=== PATIENT | female | born 1985 | race Caucasian/White ===

== ENCOUNTER 2016-07-16 09:55 | Emergency (ER) | payer BC ==
[2016-07-16 10:12] VITALS: TEMP 98
[2016-07-16] MEDS ORDERED: KETOROLAC TROMETHAMINE INJ 30 MG/ML VIAL IM ONE (10:18)
[2016-07-16] MEDS ORDERED: METOCLOPRAMIDE HCL INJ 10 MG/2 ML VIAL IM ONE (10:18)
[2016-07-16] MEDS ORDERED: LEVOTHYROXINE SODIUM 0.1 MG TAB ONE (11:25)
[2016-07-16] MEDS ORDERED: LEVOTHYROXINE SODIUM 0.075 MG TAB ONE (11:25)
[2016-07-16] MEDS ORDERED: LEVOTHYROXINE SODIUM 0.1 MG, LEVOTHYROXINE SODIUM 0.075 MG PO SCH ×2 (11:33)
--- NOTE | 2016-07-16 11:35 | ED.PDOC ---
History of Present Illness - General Chief Complaint: Headache Stated Complaint: headache and neck pain x 1 day Time Seen by Provider: 07/16/16 10:08 Source: patient Exam Limitations: no limitations - History of Present Illness Initial Comments: the patient is a 30-year-old female presenting to the emergency room secondary to a severe headache that is its worst around the junction of her occiput and paracervical spinal muscles. It has been present since early this morning. No fevers. The headache started first and she started throwing up. She does have a history of some nausea and vomiting in the past. The patient has a history of thyroid cancer and had a total thyroidectomy that was followed by radiation ablation for any remainder. The patient has been dependent on Synthroid daily but ran out approximately 1 week ago. the patient was feeling tired yesterday but no headache was present. There is obviously palpable muscle spasm posteriorly. No focal neurological changes. No blood or bile in the vomitus. No altered mental status. No fever. No overt evidence of increased intracranial pressure. Timing/Duration: 4-6 hours Severity: severe Improving Factors: nothing Worsening Factors: nothing Associated Symptoms: headaches, malaise Allergies/Adverse Reactions: Allergies NO KNOWN ALLERGY Allergy (Verified 11/03/15 22:30) Home Medications: Ambulatory Orders ALPRAZolam [Xanax] 0.25 mg PO DAILY 09/23/15 Citalopram Hydrobromide [CeleXA] 20 mg PO DAILY 09/23/15 Cyanocobalamin [B-12] 1,000 mcg PO DAILY 09/23/15 HYDROcodone 5MG/APAP 325MG [[place] 5/325] 1 - 2 ea PO Q4H PRN 09/23/15 Levothyroxine Sodium [Synthroid] 175 mcg PO MOTUWETH@0700 09/23/15 Levothyroxine Sodium [Synthroid] 350 mcg PO SUFRSA@0700 09/23/15 Pregabalin [Lyrica] 50 mg PO DAILY 09/23/15 Levothyroxine Sodium [Synthroid] 175 mcg PO DAILY #30 tab 07/16/16 Review of Systems - Review of Systems Constitutional: States: malaise EENTM: States: no symptoms reported Respiratory: States: no symptoms reported Cardiology: States: no symptoms reported Gastrointestinal/Abdominal: States: nausea, vomiting Genitourinary: States: no symptoms reported Musculoskeletal: States: neck pain Skin: States: no symptoms reported Neurological: States: headache Endocrine: States: excessive sweating - while vomiting All other Systems: No Change from Baseline Past Medical History (General) - Patient Medical History Hx Seizures: No Hx Stroke: No Hx Dementia: No Hx Asthma: No Hx of COPD: No Hx Cardiac Disorders: No Hx Congestive Heart Failure: No Hx Pacemaker: No Hx Hypertension: No Hx Thyroid Disease: Yes Hx Diabetes: No Hx Gastroesophageal Reflux: No Hx Renal Disease: No Hx Cancer: Yes Hx of HIV: No Hx Hepatitis C: No Hx MRSA: No MRSA Source:: Wound - Vaccination History Hx Tetanus, Diphtheria Vaccination: Yes Hx Influenza Vaccination: Yes Hx Pneumococcal Vaccination: Yes Immunizations Up to Date: Yes - Social History Hx Tobacco Use: No Hx Chewing Tobacco Use: No Hx Alcohol Use: No Hx Substance Use: No Hx Substance Use Treatment: No Hx Depression: No Feels Threatened In Home Enviroment: No Feels Threatened In a Relationship: No Hx Physical Abuse: No Hx Emotional Abuse: No Hx Suspected Abuse: No - Female History Patient is a Female of Child Bearing Age (10 -59 yrs old): Yes Hx Last Menstrual Period: 11/05/12 Patient : No Expected Date of Delivery:: 08/20/13 Family Medical History - Family History Mother Family History: Unknown Living Status: Still Living Physical Exam - Physical Exam General Appearance: Alert, Anxious Eye Exam: bilateral normal Ears, Nose, Throat: hearing grossly normal, normal ENT inspection, normal pharynx Neck: other - the patient is obviously having muscle spasm of the paracervical spinal muscles. This is giving her a severe tension headache. No obvious trauma is present. Respiratory: chest non-tender, lungs clear, normal breath sounds, no respiratory distress, no accessory muscle use Cardiovascular/Chest: normal peripheral pulses, regular rate, rhythm, no edema Peripheral Pulses: radial,right: 2+, radial,left: 2+, dorsalis pedis,right: 2+, dorsalis pedis,left: 2+ Gastrointestinal/Abdominal: non tender, soft Rectal Exam: deferred Back Exam: normal inspection, no CVA tenderness, no vertebral tenderness Extremity: normal range of motion, non-tender, normal inspection, no pedal edema , normal capillary refill Neurologic: alert, oriented x 3, other - she is very anxious and obviously uncomfortable Skin Exam: normal color Comments: Vital Signs - 24 hr 07/16/16 07/16/16 07/16/16 10:08 10:30 11:01 Temperature 98 F Pulse Rate [ 96 H 92 H 84 Left Apical] Respiratory 20 20 18 Rate Blood Pressure 152/95 152/110 139/94 [Left Radial Artery] O2 Sat by Pulse 99 99 99 Oximetry Progress - Progress Progress: 07/16/16 11:37 the patient is a 30-year-old female presenting with what appears to be a severe tension headache. This may be related to the patient running out of her Synthroid last week. The patient will be refilled for a few weeks. She needs to get longer prescriptions from her primary care doctor. Due to the fact that she likely makes no thyroid hormone on her own, it is imperative that she not run out of this medication as it can be a life-threatening situation. She needs to keep herself well hydrated. Glucose was within normal limits here today. Tylenol and Motrin can also be used for headache control. The headache responded nicely to Reglan and Toradol here today. She needs to continue her routine home medications. ER warnings are given for any worsening. She needs to follow up with her primary care doctor later this week. - EKG/XRAY/CT CT Ordered: No CT Interpretation Call Back: No Departure - Departure Clinical Impression: Tension type headache Qualifiers: Headache chronicity pattern: acute headache Intractability: not intractable Qualified Code(s): G44.209 - Tension-type headache, unspecified, not intractable Hypothyroidism Qualifiers: Hypothyroidism type: postablative Qualified Code(s): E89.0 - Postprocedural hypothyroidism Disposition: Discharge to Home or Self Care Condition: Fair Departure Forms: ED Discharge - Pt. Copy, Patient Portal Self Enrollment Instructions: DI for Hormonal and Tension Headaches, DI for Hypothyroidism Diet: regular diet Activity: increase activity as tolerated Referrals: Macho Velasquez MD [Primary Care Provider] - 1-5 Days Prescriptions: Levothyroxine Sodium [Synthroid] 175 mcg PO DAILY #30 tab Home Medications: Ambulatory Orders ALPRAZolam [Xanax] 0.25 mg PO DAILY 09/23/15 Citalopram Hydrobromide [CeleXA] 20 mg PO DAILY 09/23/15 Cyanocobalamin [B-12] 1,000 mcg PO DAILY 09/23/15 HYDROcodone 5MG/APAP 325MG [[place] 5/325] 1 - 2 ea PO Q4H PRN 09/23/15 Levothyroxine Sodium [Synthroid] 175 mcg PO MOTUWETH@0700 09/23/15 Levothyroxine Sodium [Synthroid] 350 mcg PO SUFRSA@0700 09/23/15 Pregabalin [Lyrica] 50 mg PO DAILY 09/23/15 Levothyroxine Sodium [Synthroid] 175 mcg PO DAILY #30 tab 07/16/16 Additional Instructions: the patient is a 30-year-old female presenting with what appears to be a severe tension headache. This may be related to the patient running out of her Synthroid last week. The patient will be refilled for a few weeks. She needs to get longer prescriptions from her primary care doctor. Due to the fact that she likely makes no thyroid hormone on her own, it is imperative that she not run out of this medication as it can be a life-threatening situation. She needs to keep herself well hydrated. Glucose was within normal limits here today. Tylenol and Motrin can also be used for headache control. The headache responded nicely to Reglan and Toradol here today. She needs to continue her routine home medications. ER warnings are given for any worsening. She needs to follow up with her primary care doctor later this week.
[2016-07-16 11:54] VITALS: BP 147/91; O2SAT 97
[2016-07-17] MEDS ORDERED: LEVOTHYROXINE SODIUM 0.1 MG, LEVOTHYROXINE SODIUM 0.075 MG PO ONE ×2 (11:17)
== END 2016-07-16 11:54 | disposition home or self-care (01) ==
LOC: ER 09:55
DX: G44.209 Tension-type headache, unspecified, not intractable (principal); E89.0 Postprocedural hypothyroidism; Z85.850 Personal history of malignant neoplasm of thyroid; Z79.899 Other long term (current) drug therapy
CPT/HCPCS: 36416; 82948; J1885; J2765

== ENCOUNTER 2017-01-05 16:38 | Emergency (ER) | payer BC ==
[2017-01-05 17:01] VITALS: BP 125/88
[2017-01-05] MEDS ORDERED: CIPROFLOXACIN 500 MG TAB PO ONE (17:34)
[2017-01-05] MEDS ORDERED: FLUCONAZOLE 100 MG TAB PO ONE (17:34)
[2017-01-05] MEDS ORDERED: cefTRIAXone SODIUM 1 GM VIAL IM ONE (17:34)
--- NOTE | 2017-01-05 17:38 | ED.PDOC ---
History of Present Illness - General Chief Complaint: Problem Stated Complaint: Urinary frequency, Low back discomfort Time Seen by Provider: 01/05/17 16:43 Source: patient Exam Limitations: no limitations - History of Present Illness Initial Comments: The patient is a 31-year-old female presenting to the emergency room with urinary symptoms primarily. She is having some urinary frequency for the last 3-5 days along with some dysuria for the last 24-36 hours. No definite fevers. She is questionably having some mild right flank pain. No vaginal discharge. She did notice a little bit of blood clot in her urine today. No sick or near-syncope. No frequent urinary tract infections and no frequent yeast infections. Timing/Duration: unsure Severity: moderate Improving Factors: nothing Worsening Factors: nothing Associated Symptoms: denies symptoms Allergies/Adverse Reactions: Allergies NO KNOWN ALLERGY Allergy (Verified 01/05/17 16:56) Home Medications: Ambulatory Orders ALPRAZolam [Xanax] 0.5 mg PO TID PRN 09/23/15 Citalopram Hydrobromide [CeleXA] 20 mg PO DAILY 09/23/15 Pregabalin [Lyrica] 50 mg PO BID 09/23/15 Levothyroxine Sodium [Synthroid] 175 mcg PO DAILY #30 tab 07/16/16 Ciprofloxacin [Cipro] 500 mg PO BID #14 tab 01/05/17 HYDROcodone 10MG/APAP 325MG [[place] 10/325] 1 tab PO Q4H PRN 01/05/17 Review of Systems - Review of Systems Constitutional: States: no symptoms reported EENTM: States: no symptoms reported Respiratory: States: no symptoms reported Cardiology: States: no symptoms reported Gastrointestinal/Abdominal: States: no symptoms reported Genitourinary: States: see HPI Musculoskeletal: States: see HPI Skin: States: no symptoms reported Neurological: States: no symptoms reported Endocrine: States: no symptoms reported Hematologic/Lymphatic: States: no symptoms reported All other Systems: No Change from Baseline Past Medical History (General) - Patient Medical History Hx Seizures: No Hx Stroke: No Hx Dementia: No Hx Asthma: No Hx of COPD: No Hx Cardiac Disorders: No Hx Congestive Heart Failure: No Hx Pacemaker: No Hx Hypertension: No Hx Thyroid Disease: Yes Hx Diabetes: No Hx Gastroesophageal Reflux: No Hx Renal Disease: No Hx Cancer: Yes - thyroid Hx of HIV: No Hx Hepatitis C: No Hx MRSA: No MRSA Source:: Wound Surgical History: other - Vaccination History Hx Tetanus, Diphtheria Vaccination: Yes Hx Influenza Vaccination: No Hx Pneumococcal Vaccination: No - Social History Hx Tobacco Use: Yes Hx Chewing Tobacco Use: No Hx Alcohol Use: No Hx Substance Use: No Hx Substance Use Treatment: No Hx Depression: No Hx Physical Abuse: No Hx Emotional Abuse: No Hx Suspected Abuse: No - Female History Patient is a Female of Child Bearing Age (10 -59 yrs old): Yes Hx Last Menstrual Period: 11/05/12 Patient : No Expected Date of Delivery:: 08/20/13 - Triage Comment ED Triage Comment: Pt uses the Mirena; unknown last menstrual period Family Medical History - Family History Mother Family History: No Known Living Status: Still Living Physical Exam - Physical Exam General Appearance: Alert, Comfortable, No apparent distress Eye Exam: bilateral normal Ears, Nose, Throat: hearing grossly normal, normal ENT inspection, normal pharynx Neck: non-tender, full range of motion Respiratory: no respiratory distress, no accessory muscle use Cardiovascular/Chest: no edema Peripheral Pulses: radial,right: 2+, radial,left: 2+ Gastrointestinal/Abdominal: non tender, soft Rectal Exam: deferred Back Exam: normal inspection, no CVA tenderness, no vertebral tenderness Extremity: normal range of motion, non-tender, normal inspection, no pedal edema Neurologic: internal specialist II-XII nml as tested, alert, normal mood/affect, oriented x 3 Skin Exam: normal color Comments: Vital Signs - 24 hr 01/05/17 17:00 Temperature 97.1 F L Pulse Rate [ 102 H Left Radial] Respiratory 18 Rate Blood Pressure 125/88 [Left Arm] O2 Sat by Pulse 91 L Oximetry Progress - Progress Progress: 01/05/17 17:37 the patient is 31-year-old female presenting with cystitis. Urine will be cultured. The patient is receiving 1 dose of IM Rocephin and will be placed on 7 days of oral ciprofloxacin. She needs to follow-up with her primary care doctor towards the end of this week for a follow-up of the culture results as well as for a retest of her urine to make sure that the infection is clearing. She does need to increase her fluid intake. Motrin can be used for discomfort. ER warnings were given for any significant worsening. Departure - Departure Clinical Impression: Cystitis Disposition: Discharge to Home or Self Care Condition: Fair Departure Forms: ED Discharge - Pt. Copy, Patient Portal Self Enrollment Instructions: DI for Acute Cystitis Diet: regular diet Activity: increase activity as tolerated Referrals: Macho Velasquez MD [Primary Care Provider] - 1-2 Weeks Prescriptions: Ciprofloxacin [Cipro] 500 mg PO BID #14 tab Home Medications: Ambulatory Orders ALPRAZolam [Xanax] 0.5 mg PO TID PRN 09/23/15 Citalopram Hydrobromide [CeleXA] 20 mg PO DAILY 09/23/15 Pregabalin [Lyrica] 50 mg PO BID 09/23/15 Levothyroxine Sodium [Synthroid] 175 mcg PO DAILY #30 tab 07/16/16 Ciprofloxacin [Cipro] 500 mg PO BID #14 tab 01/05/17 HYDROcodone 10MG/APAP 325MG [[place] 10/325] 1 tab PO Q4H PRN 01/05/17 Additional Instructions: the patient is 31-year-old female presenting with cystitis. Urine will be cultured. The patient is receiving 1 dose of IM Rocephin and will be placed on 7 days of oral ciprofloxacin. She needs to follow-up with her primary care doctor towards the end of this week for a follow-up of the culture results as well as for a retest of her urine to make sure that the infection is clearing. She does need to increase her fluid intake. Motrin can be used for discomfort. ER warnings were given for any significant worsening.
[2017-01-05 18:44] VITALS: TEMP 97; O2SAT 93
== END 2017-01-05 18:11 | disposition home or self-care (01) ==
LOC: ER 16:38
DX: N30.90 Cystitis, unspecified without hematuria (principal); E07.9 Disorder of thyroid, unspecified; Z87.891 Personal history of nicotine dependence; Z85.850 Personal history of malignant neoplasm of thyroid; Z79.899 Other long term (current) drug therapy
CPT/HCPCS: 81001; 81025; 87086; J0696